=== PATIENT | male | born 1960 | race Caucasian/White ===

== ENCOUNTER 2020-11-17 10:00 | Emergency (ER) | payer OTHER ==
[~2020-11-17] VITALS: Ht 170.2 cm; Wt 73.4 kg
[2020-11-17] MEDS ORDERED: VENTOLIN HFA18 GM INH (12:25)
[2020-11-17] MEDS ORDERED: PREDNISONE20 MG PO (12:25)
[2020-11-17] MEDS ORDERED: ENULOSE10 GM/15 M PO (12:25)
== END 2020-11-17 13:44 | disposition home or self-care (01) ==
LOC: ED 10:00
DX: R14.0 Abdominal distension (gaseous) (principal); F10.20 Alcohol dependence, uncomplicated; Y90.3 Blood alcohol level of 60-79 mg/100 ml; J44.9 Chronic obstructive pulmonary disease, unspecified; F17.200 Nicotine dependence, unspecified, uncomplicated
CPT/HCPCS: 71045; 71260; 74177; 80053; 81001; 83690; 85025; 93005; 93010; 94640; 99284-25; J3411; J7030; J7512; Q9967